=== PATIENT | female | born 1970 | race Hispanic/Latino ===

== ENCOUNTER 2021-05-18 09:57 | Emergency (ER) | payer SELFPAY ==
[~2021-05-18] VITALS: Ht 165.1 cm; Wt 80.7 kg
== END 2021-05-18 10:18 | disposition home or self-care (01) ==
LOC: ER 10:02
DX: R11.2 Nausea with vomiting, unspecified (principal); U07.1 COVID-19; E11.65 Type 2 diabetes mellitus with hyperglycemia; R53.1 Weakness
CPT/HCPCS: 36415; 82948; 99283

== ENCOUNTER 2021-11-28 11:00 | Outpatient (RCR) | payer SELFPAY | END 2021-12-11 | LOC: OT 11:00 | PROVIDERS: ATTEND Orthopaedic Surgery | DX: G56.31 Lesion of radial nerve, right upper limb (principal); M25.531 Pain in right wrist; R53.1 Weakness; R27.9 Unspecified lack of coordination; M25.631 Stiffness of right wrist, not elsewhere classified | CPT/HCPCS: 97010 ×2; 97110 ×2; 97140 ×2; 97165; L3906 ==

== ENCOUNTER 2022-01-09 10:59 | Outpatient (RCR) | payer SELFPAY | END 2022-01-11 | LOC: OT 10:59 | PROVIDERS: ATTEND Orthopaedic Surgery | DX: S44.21XA Injury of radial nerve at upper arm level, right arm, initial encounter (principal) ==

== ENCOUNTER 2022-02-06 12:00 | Outpatient (RCR) | payer BC | END 2022-02-10 | LOC: OT 12:00 | PROVIDERS: ATTEND Orthopaedic Surgery | DX: S44.21XA Injury of radial nerve at upper arm level, right arm, initial encounter (principal) ==

== ENCOUNTER 2022-02-13 12:50 | Outpatient (RCR) | payer BC, OTHER | END 2022-03-13 | LOC: PT 12:50 | PROVIDERS: ATTEND Orthopaedic Surgery | DX: S44.21XA Injury of radial nerve at upper arm level, right arm, initial encounter (principal) ==

== ENCOUNTER 2022-02-27 14:51 | Outpatient (RCR) | payer BC | END 2022-03-13 | LOC: PT 14:51 | PROVIDERS: ATTEND Orthopaedic Surgery | DX: S44.21XA Injury of radial nerve at upper arm level, right arm, initial encounter (principal) ==

== ENCOUNTER 2022-03-29 10:26 | Outpatient (RCR) | payer OTHER, BC | END 2022-04-12 | LOC: OT 10:26 | PROVIDERS: ATTEND Orthopaedic Surgery | DX: S59.911A Unspecified injury of right forearm, initial encounter (principal) ==